=== PATIENT | female | born 1950 | race Caucasian/White ===

== ENCOUNTER 2019-02-12 16:08 | Emergency (ER) | payer MEDICARE, OTHER ==
[~2019-02-12] VITALS: Ht 167.6 cm; Wt 83.8 kg
[2019-02-12] MEDS ORDERED: KETOROLAC 30 MG/1 ML IM ONE (17:00)
[2019-02-12] MEDS ORDERED: KETOROLAC 30 MG/1 ML ONE (17:06)
--- NOTE | 2019-02-12 17:16 | NUR ---
MEDICATED PER EMAR
--- NOTE | 2019-02-12 17:21 | NUR ---
WITH RADIOLOGY RESULTS PROVIDER WOULD LIKE CT W/ CONTRAST TO R/O HEMO TO PLACE PIV SHORTLY PROVIDED WITH INCENTIVE SPIROMETER. PATIENT DEMONSTRATED EFFECTIVE USE TO FOAL VOLUME (2150ML)
--- NOTE | 2019-02-12 17:48 | NUR ---
PIV PLACED TO RIGHT FOREARM FOR CT. CT CALLED TO NOTIFY
--- NOTE | 2019-02-12 17:51 | NUR ---
PROVIDER ASKED IF LABS NEEDED PRIOR TO CONTRAST- PROVIDER CLARIFIED WITH MD. CONSENSUS: (NO NEED FOR LABS)
[2019-02-12] MEDS ORDERED: HYDROcodone/APAP 5/325 TABLET ONE (17:54)
--- NOTE | 2019-02-12 17:58 | NUR ---
WITH REASSESSMENT PAIN REMAINS 7/10-REMEDICATED WITH 5MG OF HYDROCODONE TO CT SCAN AT [id number]
[2019-02-12] MEDS ORDERED: HYDROcodone/APAP 5/325 TABLET PO ONE (18:00)
[2019-02-12] MEDS ORDERED: OMNIPAQUE 350 MG/ML, 100ML BOTTLE ONE (18:15)
[2019-02-12 18:42] VITALS: BP 124/68
--- NOTE | 2019-02-12 18:44 | NUR ---
WITH REASSESSMENT PATIENT REPORTS PAIN IMPROVED TO 4/10 VSS ON NIBP/POX ABLE TO REACH GOAL OF 2250ML ON INCENTIVE X8
--- NOTE | 2019-02-12 18:59 | NUR ---
EDUCATED ON INCENTIVE USE, SPLINTING FOR COUGHING/MOVEMENT. PAIN CONTROL. IMPORTANCE OF F/U IF PAIN INCREASES/SOB/FEVER, ETC
== END 2019-02-12 19:02 | disposition home or self-care (01) ==
LOC: ED 18:21
DX: S22.41XA Multiple fractures of ribs, right side, initial encounter for closed fracture (principal); S20.212A Contusion of left front wall of thorax, initial encounter; M54.5 Low back pain; E03.9 Hypothyroidism, unspecified; W01.0XXA Fall on same level from slipping, tripping and stumbling without subsequent striking against object, initial encounter; Y93.89 Activity, other specified; Y92.009 Unspecified place in unspecified non-institutional (private) residence as the place of occurrence of the external cause; Y99.8 Other external cause status
CPT/HCPCS: 71101; 71260; 96372; 99284; J1885; Q9967